=== PATIENT | male | born 1985 | race Caucasian/White ===

== ENCOUNTER 2024-01-07 13:36 | Emergency (ER) | payer OTHER, SELFPAY ==
[2024-01-07 13:50] VITALS: BP 154/90
--- NOTE | 2024-01-07 15:50 | ED.SKININJ ---
HPI-Injury
General
Chief Complaint: Eye Problems
Source: patient
Exam Limitations: none
Time Seen by Provider: 01/07/24 15:37
Nursing documentation reviewed up to this point in time: agreed with
History of Present Illness-Injury
Initial Injury comments:
38-year-old male states about 2 hours ago at home he was moving a bamboo plant around, he looked up and something dropped into his left eye. He has had foreign body sensation and pain with opening the eye since.
Past History
Past History
ED Past Medical History: Psychiatric (Anxiety/depression, takes sertraline and lorazepam as needed he had a lorazepam prior to arrival)
ED Past Surgical History: None
Social History
Tobacco: Non-smoker
Alcohol: None
Personal:
Living: with family
Employment: Employed
Review of Systems
Review of Systems
Allergies reviewed?: Yes
All Other Systems: ROS reviewed and negative except as documented in HPI and ROS
EENT: Reports other (FB sensation, pain left eye)
ABD/GI: Denies nausea or vomiting
Neurological: Denies headache
Phy Exam
Physical Exam
Physical Exam:
PHYSICAL EXAMINATION:
General: no apparent distress, not acutely ill
Neuro: alert and oriented.
Psychiatric: well kept. interactive and cooperative
Musculoskeletal: Moves with ease
Skin: Warm, pink.
Eye Exam
Eye Exam: PERRL, EOMI, cornea clear, conjunctiva normal, globe normal and visual acuity normal
Cornea Exam: abrasion: Left (superficial vertically mid to lateral cornea) and foreign body: Left (tiny black spec under upper lid removed with steril cotton tip applicator)
Type of Exam: slit lamp and fluorescein
Course
Orders/Labs/Results
Orders:
Orders
01/07/24 15:38
Visual Acuity- Treatment ONCE
01/07/24 15:51
Gentamicin [Genoptic 0.3% Eye Drops] See Dose Instructions OPHTH NOW STA
01/07/24 16:58
Tetracaine HCl [Tetracaine 0.5% Ophthalmic Solution] 1 drop .ROUTE .STK-MED ONE
Vital Signs
Initial and Last Documented VS:
Initial Vital Signs
Temp Pulse Resp BP Pulse Ox
98.0 F 78 18 154/90 98
01/07/24 13:50 01/07/24 13:50 01/07/24 13:50 01/07/24 13:50 01/07/24 13:50
Last Documented Vital Signs
Temp Pulse Resp BP Pulse Ox
98.0 F 59 18 138/63 98
01/07/24 13:50 01/07/24 16:14 01/07/24 16:14 01/07/24 16:14 01/07/24 13:50
MDM/Problems Addressed
Differential Diagnosis Includes:
FB, corneal abrasion
MDM/Problems Addressed:
38-year-old male states about 2 hours ago at home he was moving a bamboo plant around, he looked up and something dropped into his left eye. He has had foreign body sensation and pain with opening the eye since.
Pt states immediate relief after removal of FB from upper inner eyelid
Very superficial abrasion noted with slit lamp
*Critical Care Note
Total Time (30-74mins, 75-104mins- exclusive of procedures): Not Applicable
ED Attending Note
-
Portions of this chart may have been created with voice recognition software.� Occasional wrong word or��sound alike� substitutions may have occurred due to the inherent limitations of voice recognition software.
Discharge Plan
Departure
Patient Disposition: Home (Routine Discharge)
Date of Disposition: 01/07/24
Time of Disposition: 15:56
Patient with high blood pressure during this ER visit?: No
Discharge Problem:
Foreign body of left eyelid, Corneal abrasion, left
Instructions: Corneal Abrasion (DC), How to Use Eye Drops
Referrals:
Rodrigo Rios MD [Active] - As needed
Megan Rose MD [Family Provider] -
Activity Restrictions/Additional Instructions:
As we discussed, use the gentamicin eyedrops as follows: 1 to 2 drops in the left eye 4 times a day for 5 days
See the eye doctor if your eye is not 100% better within the next 3 days, see him immediately or return here immediately if the pain gets worse, you have any loss of vision or the eye feels worse in any way.
Interventions
Interventions:
*Risk Screen - Suicide Last Done: 01/07/24 13:50
*General Assessment Last Done: 01/07/24 13:50
*Neglect/Abuse Screening Last Done: 01/07/24 13:50
*Nursing Disposition Last Done: 01/07/24 16:14
Discharge Date and Time
Discharge Date/Time: 01/07/24 16:14
Print Language: SINHALA
[2024-01-07] MEDS: GENOPTIC 0.3% EYE DROPS 2 DROP OPHTH (16:08)
[2024-01-07 16:11] VITALS: BP 138/63
[2024-01-07 16:14] VITALS: BP 138/63
== END 2024-01-07 16:14 | disposition home or self-care (01) ==
LOC: EMR 13:36
PROVIDERS: EMERGENCY PHYSICIAN Emergency Medicine; FAMILY PHYSICIAN Internal Medicine
DX: S05.02XA Injury of conjunctiva and corneal abrasion without foreign body, left eye, initial encounter (principal); W44.9XXA Unspecified foreign body entering into or through a natural orifice, initial encounter; H57.8A2 Foreign body sensation, left eye; F41.8 Other specified anxiety disorders
CPT/HCPCS: 99282